=== PATIENT | female | born 1995 | race Caucasian/White ===

== ENCOUNTER 2022-07-04 07:14 | Observation (INO) | payer MEDICAID ==
[~2022-07-04] VITALS: Ht 149.9 cm; Wt 64.9 kg
[2022-07-04] MEDS ORDERED: PREN-118 PO (07:35)
[2022-07-04 09:04] VITALS: BP 116/61
== END 2022-07-04 09:10 | disposition home or self-care (01) ==
LOC: 8 EST LDRP 07:14
PROVIDERS: ADMIT Obstetrics & Gynecology; ATTEND Obstetrics & Gynecology
DX: O36.8330 Maternal care for abnormalities of the fetal heart rate or rhythm, third trimester, not applicable or unspecified (principal); Z3A.38 38 weeks gestation of pregnancy
CPT/HCPCS: 59025; 76805; 76818; G0378; 99281; G0379

== ENCOUNTER 2022-07-11 07:41 | Inpatient (IN) | payer MEDICAID ==
[~2022-07-11] VITALS: Ht 149.9 cm; Wt 66.2 kg
[~2022-07-11 07:41] MED LIST: PREN-118 PO
[2022-07-11] MEDS ORDERED: METHYLERGONOVINE MALEATE 0.2 MG/ML IM PRN (09:00)
[2022-07-11] MEDS ORDERED: LIDOCAINE HCL 1% 20ML VIAL (Pyxis) INJ INFIL SCH (09:00)
[2022-07-11] MEDS ORDERED: MISOPROSTOL 100MCG TABLET VG SCH (09:00)
[2022-07-11] MEDS ORDERED: NALOXONE HCL 0.4 MG/ML 1ML VIAL IM PRN (09:00)
[2022-07-11] MEDS: LACTATED RINGERS 1,000 ML IV SCH ×3 (09:46→22:31)
[2022-07-11] MEDS ORDERED: PENICILLIN G POTASSIUM 5 MMU in DEXT 5% WATER 100 ML IV SCH (10:00)
[2022-07-11 10:27] LABS: BASOPHILS % 0.4 % (0.0-2.0); EOSINOPHILS % 1.1 % (0.0-5.0); HEMATOCRIT. 37.6 % (36.0-48.0); HEMOGLOBIN. 12.8 g/dL (12.0-16.0); LYMPHOCYTES % 13.2 % (20.0-50.0); MEAN CORPUSCULAR HEMOGLOBIN 29.2 pg (28.0-32.0); MONOCYTES % 6.8 % (2.0-8.0); NEUTROPHILS % 78.5 % (40.0-76.0); PLATELET 181 x1000/uL (130-400); RED BLOOD CELL COUNT 4.37 mill/uL (4.2-5.4)
[2022-07-11 10:28] LABS: CLARITY URINE CLOUDY (CLEAR); COLOR URINE YELLOW (YELLOW); KETONES URINE NEGATIVE (NEGATIVE); LEUKOCYTE ESTERASE URINE 1+ (NEGATIVE); NITRITE URINE NEGATIVE (NEGATIVE); OCCULT BLOOD URINE NEGATIVE (NEGATIVE); PROTEIN URINE NEGATIVE (NEGATIVE); SPECIFIC GRAVITY URINE 1.009 (1.005-1.030); UROBILINOGEN URINE 0.2 E.U./dL (0.2-1.0)
[2022-07-11] MEDS: OXYTOCIN 30 UNITS/500ML NS PMX 500 ML IV SCH (10:30)
[2022-07-11 10:36] LABS: INR 0.9; PARTIAL THROMBOPLASTIN TIME 27.7 sec (23.4-31.0); PROTHROMBIN TIME 9.9 sec (9.6-11.0)
[2022-07-11 10:55] LABS: *AMPHETAMINES SCREEN URINE NEGATIVE (NEGATIVE); *BARBITURATES SCREEN URINE NEGATIVE (NEGATIVE); *BENZODIAZEPINES SCREEN URINE NEGATIVE (NEGATIVE); *COCAINE SCREEN URINE NEGATIVE (NEGATIVE); CANNABINOID URINE SCREEN NEGATIVE (NEGATIVE); METHADONE URINE SCREEN NEGATIVE (NEGATIVE); OPIATES URINE SCREEN NEGATIVE (NEGATIVE); PHENCYCLIDINE URINE SCREEN NEGATIVE (NEGATIVE)
[2022-07-11 11:37] LABS: HEPATITIS B SURFACE ANTIGEN NEGATIVE
[2022-07-11] MEDS ORDERED: MINERAL OIL 30ML BOTTLE PO SCH (12:45)
[2022-07-11] MEDS: PENICILLIN G POTASSIUM 2.5 MMU in DEXTROSE 5% WATER 50 ML IV SCH ×3 (14:35→22:30)
[2022-07-11] MEDS ORDERED: BUTORPHANOL TARTRATE 2 MG/ML VIAL IV PRN (22:00)
[2022-07-11] MEDS ORDERED: BUTORPHANOL TARTRATE 2 MG/ML VIAL IM PRN (22:15)
[2022-07-12] MEDS: PENICILLIN G POTASSIUM 2.5 MMU in DEXTROSE 5% WATER 50 ML IV SCH ×3 (02:29→14:10)
[2022-07-12] MEDS ORDERED: ROPIVACAINE HCL/PF EPIDURAL 200 ML EPI ONE (02:54)
[2022-07-12] MEDS ORDERED: ROPIVACAINE HCL/PF EPIDURAL 200 ML EPI SCH (03:00)
[2022-07-12] MEDS: LACTATED RINGERS 1,000 ML IV SCH ×2 (05:44→10:28)
[2022-07-12] MEDS ORDERED: GLYCERIN/WITCH HAZEL LEAF MEDICATED PAD TOP PRN (18:00)
[2022-07-12] MEDS ORDERED: METHYLERGONOVINE MALEATE 0.2 MG/ML IM PRN (18:00)
[2022-07-12] MEDS ORDERED: BISACODYL 10MG SUPP PR PRN (18:00)
[2022-07-12] MEDS ORDERED: BENZOCAINE/LANOLIN/ALOE VERA SPRAY TOP PRN (18:00)
[2022-07-12] MEDS ORDERED: LANOLIN OINT 7GM TUBE TOP PRN (18:00)
[2022-07-12] MEDS ORDERED: RHO(D) IMMUNE GLOBULIN 300 MCG/SYR IM PRN (18:00)
[2022-07-12] MEDS ORDERED: ACETAMINOPHEN WITH CODEINE 300/30MG TABLET PO PRN (18:00)
[2022-07-12] MEDS ORDERED: DIPHENHYDRAMINE 25MG CAPSULE PO PRN (18:00)
[2022-07-12] MEDS ORDERED: IBUPROFEN 400MG TABLET PO PRN (18:00)
[2022-07-12] MEDS ORDERED: HEMORRHOIDAL SUPP PR PRN (18:00)
[2022-07-12] MEDS ORDERED: OXYTOCIN 30 UNITS/500ML NS PMX 500 ML IV SCH (18:00)
[2022-07-12] MEDS: OXYTOCIN 30 UNITS/500ML NS PMX 500 ML IV SCH (18:06)
[2022-07-12 20:45] VITALS: BP 116/69
[2022-07-12] MEDS: IBUPROFEN 800MG TABLET PO PRN (21:00)
[2022-07-12] MEDS: DOCUSATE SODIUM 100MG CAPSULE PO SCH (21:52)
[2022-07-12] MEDS: SIMETHICONE 80MG TABLET CHEW PO SCH (21:53)
[2022-07-12 23:15] VITALS: BP 100/64
[2022-07-13 04:00] VITALS: BP 118/69
[2022-07-13] MEDS: IBUPROFEN 800MG TABLET PO PRN ×3 (04:03→21:31)
[2022-07-13 06:46] LABS: BASOPHILS % 0.1 % (0.0-2.0); EOSINOPHILS % 0.9 % (0.0-5.0); HEMATOCRIT. 32.3 % (36.0-48.0); HEMOGLOBIN. 11.2 g/dL (12.0-16.0); LYMPHOCYTES % 11.8 % (20.0-50.0); MEAN CORPUSCULAR HEMOGLOBIN 30.1 pg (28.0-32.0); MEAN CORPUSCULAR VOLUME 86.9 fL (81.0-99.0); MEAN PLATELET VOLUME 9.1 fl (7.4-10.4); NEUTROPHILS % 81.2 % (40.0-76.0); PLATELET 157 x1000/uL (130-400); RED BLOOD CELL COUNT 3.72 mill/uL (4.2-5.4); RED CELL DISTRIBUTION WIDTH 14.1 % (11.6-14.6)
[2022-07-13 07:30] VITALS: BP 117/76
[2022-07-13] MEDS: SIMETHICONE 80MG TABLET CHEW PO SCH ×4 (09:14→21:29)
[2022-07-13] MEDS: FERROUS SULFATE 325MG TABLET PO SCH ×3 (09:14→18:27)
[2022-07-13] MEDS: PRENATAL VIT/FE FUMARATE/FA TABLET PO SCH (09:14)
[2022-07-13 13:00] VITALS: BP 112/72
[2022-07-13 16:30] VITALS: BP 116/76
[2022-07-13 20:00] VITALS: BP 119/74
[2022-07-13] MEDS: DOCUSATE SODIUM 100MG CAPSULE PO SCH (21:29)
[2022-07-14 04:00] VITALS: BP 108/76
[2022-07-14] MEDS: IBUPROFEN 800MG TABLET PO PRN (08:23)
[2022-07-14] MEDS: PRENATAL VIT/FE FUMARATE/FA TABLET PO SCH (08:24)
[2022-07-14] MEDS: SIMETHICONE 80MG TABLET CHEW PO SCH (08:24)
[2022-07-14] MEDS: FERROUS SULFATE 325MG TABLET PO SCH (08:24)
[2022-07-14 10:00] VITALS: BP 116/76
== END 2022-07-14 12:30 | disposition home or self-care (01) | DRG 560 ==
LOC: OBSVTOIN 07:41 → 8 EST LDRP 07:41 → 8EST 07-12 20:30
PROVIDERS: ADMIT Obstetrics & Gynecology; ATTEND Obstetrics & Gynecology
PROC: 10E0XZZ Delivery of Products of Conception, External Approach (ICD-10-PCS; principal; 2022-07-12)
PROC: 0W8NXZZ Division of Female Perineum, External Approach (ICD-10-PCS; 2022-07-12)
PROC: 3E0R3BZ Introduction of Anesthetic Agent into Spinal Canal, Percutaneous Approach (ICD-10-PCS; 2022-07-12)
PROC: 00HU33Z Insertion of Infusion Device into Spinal Canal, Percutaneous Approach (ICD-10-PCS; 2022-07-12)
DX: O77.0 Labor and delivery complicated by meconium in amniotic fluid (principal); Z37.0 Single live birth; J45.909 Unspecified asthma, uncomplicated; O99.52 Diseases of the respiratory system complicating childbirth; Z3A.39 39 weeks gestation of pregnancy; Z20.822 Contact with and (suspected) exposure to COVID-19
CPT/HCPCS: 36415; 76815; 80305; 81003; 85025; 86592; 86703; 86762; 86850; 86900; 87340; 87426; 99281; J0595; J2540; J2795; J7060; J7120; A4315; J2590